=== PATIENT | male | born 1970 | race Caucasian/White ===

== ENCOUNTER 2016-06-10 15:05 | Emergency (ER) | payer OTHER ==
[2016-06-10 15:19] VITALS: BP 137/87; PULSE 78; RESP 17; TEMP 36.8; O2SAT 96
--- NOTE | 2016-06-10 15:52 | DX ---
Left Foot, 3 Views, at 3:06 p.m. Clinical History: 45-year-old male who hit his foot against weight equipment one week ago, and compla ins of persistent pain. Comparison Study: None. Findings: There is a slightly impacted transversely-oriented nondisplaced fracture of the proximal me taphyseal portion of the 5th toe proximal phalanx. There is some associated soft tissue swelling. The re is a minor hallux valgus configuration with some early degenerative change involving the lateral p ortion of the great toe metatarsophalangeal joint. There is a bipartite medial great toe sesamoid bon e. There is an unfused os peroneum along the lateral midfoot. The tarsometatarsal alignment is anatom ic. Impression: Nondisplaced fracture involving the metaphyseal base of the 5th toe proximal phalanx.
--- NOTE | 2016-06-10 16:05 | EDPHY ---
H & P Time Seen by Provider: 06/10/16 15:26 HPI/ROS: CHIEF COMPLAINT: left pinky toe injury HISTORY OF PRESENT ILLNESS: Patient is a 45-year-old male who presents to the emergency department after injuring his left pinky toe a few days ago. He states he struck his foot into await set. He has had significant pain that is been persistent. He now has bruising over his 2nd through 5th toes as well as the base of his heel. His tenderness is focused on his left pinky toe. There is no radiation of pain. REVIEW OF SYSTEMS: Negative Past Medical/Surgical History: Noncontributory Smoking Status: Never smoked Physical Exam: General Appearance: Alert and no distress. Head: Pupils equal. Normal. Respiratory: No respiratory distress. Cardiac: regular rate and rhythm. Extremities: patient has bruising at the base of his 3rd, 4th and 5th left toe. There is tenderness to palpation on phalanx of his 5th toe. No deformity. No skin breakdown. Patient also has bruising at the heel. There is no tenderness palpation at this location. The rest of his foot is nontender palpation. Ankle is atraumatic. Skin: No rashes or lesions. Neuro: Alert. Normal mood and affect. Constitutional: Initial Vital Signs Temperature (C) 2.7 C L 06/10/16 15:16 Heart Rate 78 06/10/16 15:16 Respiratory Rate 17 06/10/16 15:16 Blood Pressure 137/87 H 06/10/16 15:16 O2 Sat (%) 96 06/10/16 15:16 O2 Delivery Mode Room Air Allergies/Adverse Reactions: No Known Allergies Allergy (Unverified 12/20/15 14:22) Home Medications: Medication Instructions Recorded Ibuprofen [Motrin (*)] 800 mg PO Q6-8PRN #30 tab 12/20/15 Medical Decision Making ED Course/Re-evaluation: In the emergency department x-ray of his left foot was obtained. Patient is a nondisplaced fracture at the base of his left 5th toe. I discussed this with the patient. I answered all his questions. He was given a Poston boot. He will follow up with Dr. Mendoza was on for Orthopedics. I gave him warnings prior to leaving. He will return with worsening symptoms. Patient did not want any pain medication. Differential Diagnosis: My differential includes but is not limited to fracture, dislocation, contusion , abrasion, neurovascular injury Departure - Departure Disposition: Home, Routine, Self-Care Clinical Impression: Toe fracture, left Qualifiers: Encounter type: initial encounter Toe: lesser toe Fracture type: closed Fracture alignment: nondisplaced Condition: Good Instructions: Toe Fracture (ED) Referrals: Ivan Mendoza MD [Medical Doctor] - 5-7 days, call for appt.
== END 2016-06-10 16:13 | disposition home or self-care (01) ==
DX: S92.505A Nondisplaced unspecified fracture of left lesser toe(s), initial encounter for closed fracture (principal); W22.8XXA Striking against or struck by other objects, initial encounter